=== PATIENT | male | born 1995 | race Caucasian/White ===

== ENCOUNTER 2020-11-22 13:24 | Inpatient (IN) ==
[2020-11-22 14:20] LABS: Basophils % 0.2 % (0.0-0.8); Eosinophils % 0.3 % (0.00-10.9); Hematocrit 39.1 VOL% (42.0-52.0); Immature Granulocytes % 1.4 %; Immature Granulocytes Absolute 0.09 #; Lymphocytes # 1.8 10*3/uL (1.4-4.0); Lymphocytes % 27.8 % (21.2-54.2); Mean Corpuscular HGB Conc 35.8 GM/DL (32-36); Mean Corpuscular Volume 87.7 FL (87-102); Mean Platelet Volume 9.5 FL (9.6-12.0); Monocytes % 5.6 % (1.7-12.7); Neutrophils % 64.7 % (38.7-73.9); Platelet Count 226 T/CUMM (130-400); Red Blood Count 4.46 MC/CUMM (3.8-5.5); Red Cell Distribution Width 11.9 % (9.3-17.3); White Blood Count 6.6 T/CUMM (4-12)
[2020-11-22 14:32] LABS: PT Patient Result 11.2 SECS (9.8-11.9)
[2020-11-22 14:48] LABS: Albumin 3.1 G/DL (3.4-5.0); Bilirubin,Total 0.4 MG/DL (0.2-1.0); Calcium 8.1 MG/DL (8.5-10.1); Ferritin 445.5 ng/ml (26-388); Total Protein 6.7 G/DL (6.4-8.3)
[2020-11-22 14:58] LABS: Lymphocytes 23 % (20-55); Segmented Neutrophils 74 % (50-85); Total Cells Counted 100
[2020-11-22 14:59] LABS: Atypical Lymphocytes Few; Platelet Estimate Adequate; Reactive Lymphocytes Few
[2020-11-22 15:00] LABS: Anisocytosis Slight; Polychromasia Few
[2020-11-22] MEDS ORDERED: DEXTROSE 50% 25 GM/50 ML VIAL IV PRN (16:57)
[2020-11-22] MEDS ORDERED: DOCUSATE SODIUM 100 MG CAPSULE PO PRN (16:57)
[2020-11-22] MEDS ORDERED: ACETAMINOPHEN 325 MG TABLET PO PRN (16:57)
[2020-11-22] MEDS ORDERED: ONDANSETRON 4 MG/2 ML VIAL IV PRN (16:57)
[2020-11-22] MEDS ORDERED: GLUCAGON 1 MG VIAL IM PRN (16:57)
[2020-11-22] MEDS: DEXAMETHASONE 4 MG/1 ML VIAL IV SCH (17:59)
[2020-11-22] MEDS: CHOLECALCIFEROL 1,000 UNIT TABLET PO SCH (17:59)
[2020-11-22] MEDS: CETIRIZINE 10 MG TABLET PO SCH (17:59)
[2020-11-22] MEDS: ZINC GLUCONATE 50 MG TABLET PO SCH (17:59)
[2020-11-22] MEDS ORDERED: cefTRIAXone 1,000 MG in SYRINGE 1 EACH IV SCH (18:00)
[2020-11-22] MEDS: ASCORBIC ACID 500 MG TABLET PO SCH (20:32)
[2020-11-22] MEDS: FAMOTIDINE 20 MG TABLET PO SCH (20:32)
[2020-11-22] MEDS ORDERED: ENOXAPARIN 40 MG/0.4 ML SYRINGE SUBCUT SCH (21:00)
[2020-11-23 05:53] LABS: Basophils % 0.2 % (0.0-0.8); Hematocrit 39.5 VOL% (42.0-52.0); Hemoglobin 13.4 GM/DL (14.0-18.0); Immature Granulocytes % 2.1 %; Immature Granulocytes Absolute 0.09 #; Lymphocytes # 0.8 10*3/uL (1.4-4.0); Lymphocytes % 19.2 % (21.2-54.2); Mean Corpuscular HGB Conc 33.9 GM/DL (32-36); Mean Corpuscular Volume 92.5 FL (87-102); Neutrophils % 74.5 % (38.7-73.9); Platelet Count 251 T/CUMM (130-400); Red Blood Count 4.27 MC/CUMM (3.8-5.5); White Blood Count 4.2 T/CUMM (4-12)
[2020-11-23 06:24] LABS: Bilirubin,Total 0.7 MG/DL (0.2-1.0); Calcium 8.8 MG/DL (8.5-10.1); Osmolality,Calculated 282.1 MOS/KG (273-304); Total Protein 7.4 G/DL (6.4-8.3)
[2020-11-23] MEDS ORDERED: ALBUTEROL INHALER 18 GM INH SCH (07:00)
[2020-11-23 07:30] LABS: Band Neutrophils 6 % (0-10); Lymphocytes 19 % (20-55); Platelet Estimate Normal; Segmented Neutrophils 71 % (50-85); Total Cells Counted 100
[2020-11-23] MEDS ORDERED: PANTOPRAZOLE 40 MG TABLET PO SCH (09:00)
[2020-11-23] MEDS: DEXAMETHASONE 4 MG/1 ML VIAL IV SCH (09:07)
[2020-11-23] MEDS: ASCORBIC ACID 500 MG TABLET PO SCH (09:07)
[2020-11-23] MEDS: FAMOTIDINE 20 MG TABLET PO SCH (09:07)
[2020-11-23] MEDS: CETIRIZINE 10 MG TABLET PO SCH (09:07)
[2020-11-23] MEDS: CHOLECALCIFEROL 1,000 UNIT TABLET PO SCH (09:07)
[2020-11-23] MEDS: ZINC GLUCONATE 50 MG TABLET PO SCH (09:07)
[2020-11-23 12:11] VITALS: BP 146/76
[2020-11-25] MEDS ORDERED: AZITHROMYCIN 250 MG TABLET PO SCH (17:00)
== END 2020-11-23 13:05 | disposition home or self-care (01) | DRG 177 ==
LOC: N.ED 13:24 → N.EDINP 16:59 → N.2E 18:11
PROVIDERS: ADMIT Internal Medicine; ATTEND Internal Medicine